=== PATIENT | female | born 1950 | race Caucasian/White ===

== ENCOUNTER 2018-08-09 07:57 | Day surgery (SDC) | payer OTHER, SELFPAY ==
[2018-08-01 13:47] VITALS: BMI 22.9
[2018-08-09] VITALS (15 sets, daily range): BP systolic 104–157; BP diastolic 67–89; PULSE 61–90; RESP 9–20; TEMP 36.2–36.6; O2SAT 96–100; BMI 22.6
--- NOTE | 2018-08-09 06:00 | DI.RAD.S_ITS ---
PROCEDURE: XR KNEE LT 1TO2V INDICATIONS: postop total knee TECHNIQUE: 2 view(s) of the knee acquired. COMPARISON: [facility], XR KNEE ARTHRITIC SERIES LT, 06/15/2018, 10:31. FINDINGS: Bones: Patient is status post knee joint arthroplasty. Hardware components are in expected positions. Visualized bony structures are intact. Soft tissues: Overlying postoperative changes are noted. There is a soft tissue air, edema, and fluid are present. No unexpected radiopaque foreign bodies are identified. IMPRESSION: Expected post surgical changes related to a total right knee arthroplasty. Dictated by: Timi Wilkes M.D. on 08/09/2018 at 12:11 Approved by: Timi Wilkes M.D. on 08/09/2018 at 12:11
[2018-08-09] MEDS: ACETAMINOPHEN 325 MG TABLET 975 MG PO ×3 (08:55→21:33)
[2018-08-09] MEDS: PREGABALIN 75 MG CAPSULE PO (08:56)
[2018-08-09] MEDS: LACTATED RINGERS 1,000 ML 42 ML IV ×2 (08:56→12:55)
[2018-08-09] MEDS: CELECOXIB 200 MG CAPSULE PO (08:56)
--- NOTE | 2018-08-09 09:42 | PM.PREOP ---
Pre-operative Note Interval Note History & Physical reviewed/Exam performed by Physician: Yes Changes to H&P: No
--- NOTE | 2018-08-09 09:53 | P.OP_ITS ---
Operative Date/Time/Diagnoses Date of procedure: 08/09/18 Time of procedure: 12:05 Pre-op diagnosis: Left knee osteoarthritis Post-op diagnosis: same Procedure & Clinicians Procedure: Left total knee replacement Same procedure as scheduled: Yes Indications: The patient has had progressively worsening left knee pain with radiographic changes consistent with arthritis. Non-operative management has failed and the patient has requested total knee replacement. The risks, benefits and alternatives to surgery were discussed with the patient prior to proceeding. Risks discussed included, but were not limited to, failure to relieve pain, stiffness, infection, nerve damage, deep venous thrombosis, pulmonary embolism, stroke, coma, heart attack, permanent paralysis and , as well as the potential need for eventual revision of the prosthetic. Surgeon: Urban Diaz Passenger Car Conductor: Natalie Campbell Click Yes if Unassisted: No Anesthesia Type: General, Spinal and Local Operative Notes Findings: Severe tricompartmental arthritis worst in the medial compartment. Closure Type: primary Specimen(s): none sent Implants & Drains: Implants used in this procedure were manufactured by the [employer] and [employer] and included the BCS II Journey total knee replacement with a size 5 left Oxinium femoral component, size 4 left non porous tibial base plate, a 10 mm cross-linked polyethylene tibial insert and a 35 mm oval Mary II patellar component. Applied: implant(s) Estimated Blood Loss (mL): 25 Blood products transfused: none Tourniquet time (min): 52 Procedure in detail: The patient was seen in the pre-operative area, where the left knee was identified as the operative site and this was marked with my initials. The patient received pre-operative antibiotics, and was taken to the operating room and placed on the operative table in the supine position. After satisfactory anesthesia, a milling machinist out? was performed. The left leg was encircled with a tourniquet about the proximal thigh, and the leg was prepared from the toes to the tourniquet with ChloroPrep in the usual fashion and draped through sterile drapes. The leg was elevated and exsanguinated with Eschmark bandage and the tourniquet inflated to 250 mmHg pressure. The knee was approached through an approximately 18 cm incision centered over the patella and carried into the knee through a medial parapatellar arthrotomy. The anterior osteophytes and soft tissues were removed. The rotational landmarks of [place]'s line and the transepicondylar axis were marked on the femur with electrocautery, and intramedullary guide holes for the femur and tibia were created. The distal femoral cut was made in 6 degrees of valgus using the intramedullary guide at the primary cut setting. The proximal tibial cut was then made using the intramedullary guide, taking 9 mm of bone off the less involved side. The extension gap was checked and the rotation of the femoral component confirmed with the gap balancing blocks. The anterior, posterior and chamfer cuts were then made. The posterior osteophytes and soft tissues were then removed. The posterior capsule was injected with part of a mixture of 60 ml 0.25% Marcaine mixed with 20 ml Exparel and 4 mg of morphine for post-operative pain control. The remainder of this mixture was injected into the capsule and subcutaneous tissues during cement curing. The tibia was prepared with the rotation set by an extra medullary guide. Trial tibial and femoral components were then placed and the intercondylar notch cut through the femoral trial. Range of motion was 0-140 degrees, with good stability throughout the range. The patella was then cut to accommodate the patellar prosthetic. There was no need for a lateral release. The trials were then removed, and the femoral hole plugged with a bone plug. The bone was prepared with pulsatile lavage, and dried with a sponge. Cement was applied and the final prosthetics placed. Excess cement was removed during and after cement curing. After confirming there was no extruded cement posteriorly, the final tibial insert was placed. The knee was copiously irrigated and the tourniquet deflated. Hemostasis was obtained. The capsule was closed with interrupted # 2 polyester sutures. The subcutaneous layer was closed with 3-0 Vicryl, and the skin with a running 3-0 V-Lock suture and SteriStrips. An Aquacel Ag dressing was applied and the patient was taken to recovery having tolerated the procedure well. Complications: none Condition: stable Disposition: PACU Plan for aftercare: The patient will be maintained on a standard total knee replacement protocol with weight bearing as tolerated. The patient will receive aspirin and sequential compression devices for DVT prophylaxis. The patient will be discharged home when safe for the home environment.
[2018-08-09] MEDS: CEFAZOLIN 2 GM/100 ML FROZ.PIGGY IV ×2 (10:35→19:52)
--- NOTE | 2018-08-09 11:04 | SUR.OPER ---
Supine on padded OR bed. Pillow under head, arms secured on padded armboards <90 degree abduction. Safety belt across torso. Non-operative leg secured with tape over blanket over lower leg. Operative leg secured in DeMayo/Maulik positioner. Foam padded brace at thigh of operative leg.
[2018-08-09] MEDS: BUPIVACAINE 0.25% W/ EPI VIAL 50 ML INJ (11:12)
[2018-08-09] MEDS: BUPIVACAINE LIPOSOME 266 MG/20 ML VIAL INJ (11:13)
[2018-08-09] MEDS: TRANEXAMIC ACID 1,000 MG VIAL 1000 MG INJ (11:13)
--- NOTE | 2018-08-09 12:35 | SUR.PHASEI ---
Pt excepted by jerrod hong, report given and I assumed care at this time.
[2018-08-09] MEDS: ONDANSETRON 4 MG/2 ML INJ IV (12:43)
--- NOTE | 2018-08-09 12:45 | SUR.PHASEI ---
Pt c/o nausea, ondansetron given along with queaze ease to bedside.
--- NOTE | 2018-08-09 13:01 | SUR.PHASEI ---
Nausea resolved, pt taking ice chips and applesauce.
[2018-08-09] MEDS: HYDROMORPHONE 2 MG INJ 0.25 MG IV (13:06)
[2018-08-09] MEDS: LACTATED RINGERS 1,000 ML 125 ML IV ×2 (13:59→23:13)
--- NOTE | 2018-08-09 14:16 | PC.NURSE ---
Day Shift Pt arrived from PACU via bed at 1330, A&O able to communicate needs. Laying on left side positioned with pillows for comfort. Left knee dressing has aqucel with seema wrap. Pt is able to wiggle toes and feels touch at bilateral knees. Lung sounds are clear 95% RA denies SOB. Mild nausea tolerating ice chips and sips of water. calf SCD's in place, IV fluids infusing per order. Oriented to room and call light. Family at bedside. Call light within reach and bed alarm for safety.
--- NOTE | 2018-08-09 15:10 | PT.IIE ---
Current Diagnoses Bilateral primary osteoarthritis of knee (08/09/18) Surgery Performed Operation Date: 08/09/18 10:15 Actual Procedures p Total Knee Arthroplasty(Left) - Urban Diaz MD Surgical History (Last Updated 08/01/18 @ 14:39 by Donna Ch RN) History of bilateral tubal ligation (Acute) History of section (Acute) History of colonoscopy (Acute) Medical History (Last Updated 08/01/18 @ 14:39 by Donna Ch RN) Anxiety (Acute) Bilateral knee pain (Acute) Depression (Acute) Easy bruisability (Acute) Hypoglycemia (Acute) Osteoporosis (Acute) Skin cancer (Acute) Syncope (Acute) Physical Therapy Inpatient Evaluation/Re-Eval M1 PT/OT-IP Prior Functional Status Start: 08/09/18 15:54 Freq: NEEDED Status: Active Protocol: Document 08/09/18 15:10 AB (Rec: 08/09/18 16:11 AB [id number]) Medical Review Prior Functional Status Medical History Reviewed Yes Communication able to make needs known Mobility and Gait stated that she is independent with all mobilities and ambulation without AD Social History Household Members spouse Living Arrangements House Number of Floors (Floors) Two Floors Number of Stairs To Enter/Railing? 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 sister present during PT session and stated that pt will stay with her at a hotel for the first ~ 2 days so that pt does not have to do stairs right away. M2 PT-IP Current Condition Start: 08/09/18 15:54 Freq: NEEDED Status: Active Protocol: Document 08/09/18 15:10 AB (Rec: 08/09/18 16:11 AB [id number]) Physical Therapy Current Condition Current Condition Evaluation Date 08/09/18 Treatment Diagnosis s/p L TKA; difficulty in walking Onset Date 08/09/18 Precautions Other Precautions BP Weight Bearing Status Weight Bearing Status Weight Bear as Tolerated M3 PT-IP Subjective Start: 08/09/18 15:54 Freq: NEEDED Status: Active Protocol: Document 08/09/18 15:10 AB (Rec: 08/09/18 16:11 AB [id number]) Subjective Physical Therapy Visit Type Type Initial Evaluation Visit Start Time 15:10 Visit Stop Time 15:47 Total Visit Minutes 37 Number of SPECIAL MAKEUP FX ARTIST INSTRUCTOR Visits 0 Physical Therapy Visit Comments Patient Comments pt agreeable to do PT Therapy Pain Assessment Pain When Pain Assessed At Rest Pain Present Pain Present Pain Reported Location Left Knee Intensity 2 Scale Used Numeric (1 - 10) Pain Management Techniques Apply Cold Re-positioning Timing of Activity with Medications M4 PT-IP Mobility and Gait Start: 08/09/18 15:54 Freq: NEEDED Status: Active Protocol: Document 08/09/18 15:10 AB (Rec: 08/09/18 16:11 AB [id number]) PT-Bed Mobility Assessment Supine to Sit Supine to Sit Standby Assistance Sit to Supine Sit to Supine Standby Assistance Scooting Scooting to Edge of Bed Standby Assistance Scooting Up and Down in Bed Standby Assistance PT-Transfer Assessment Comments Mobility Comments BP in supine: 122/64 O2 sat 97 % [place]: 84. pt completed supine to sit SBA. able to sit on EOB SBA. c/o slight dizziness /lightheadness. BP: 102/60. pt stated that she wants to try to stand but does not think she can do it due to dizziness. checked BP again after ~ 2min of restin/54 . instructed pt to lie back in bed and completed sit to supine SBA. pt able to scoot up into the bed with cues SBA. BP checked again in supine: 104/67. informed nursing regarding BP. positioned pt. in bed. call light and table placed within reach. Gait Assessment Comments Gait Comments unable at this time due to decrease in BP in sitting PT-Balance Assessment Sitting Balance and Reactions Static Sitting Balance Ability Good Dynamic Sitting Balance Ability Good M5 PT-IP Objective Assessments Start: 08/09/18 15:54 Freq: NEEDED Status: Active Protocol: Document 08/09/18 15:10 AB (Rec: 08/09/18 16:11 AB [id number]) Orientation Orientation/Cognition Level of Alertness Alert Orientation Name Age Birthday Month Year Place Situation Memory Description Retirement Impaired Gross Range of Motion Lower Extremity ROM Assessment Left Impaired Impairments L knee extension: lacking ~ 10 deg to neutral R knee flexion: up to ~ 70 degree Strength Lower Extremity Strength Assessment Left Impaired Hip 4/5 Knee 4-/5 Coordination Assessment Gross Coordination Gross Coordination WNL Muscle Tone Muscle Tone WNL Yes M6 PT-IP Treatment Start: 08/09/18 15:54 Freq: NEEDED Status: Active Protocol: Document 08/09/18 15:10 AB (Rec: 08/09/18 16:11 AB [id number]) Physical Therapy Treatment Exercises Exercises Heel Slides Education Education Provided Precautions Weight Bearing Status Post-Op Packet Safety M7 PT-IP Assessment and Plan Start: 08/09/18 15:54 Freq: NEEDED Status: Active Protocol: Document 08/09/18 15:10 AB (Rec: 08/09/18 16:11 AB [id number]) PT Summary Assessment and Plan Potential Rehabilitation Potential Fair Status of Condition at Evaluation Evolving Summary Impairments Pain ROM Strength Balance Coordination Sensation Tone Cognition Bed Mobility Transfers Gait Activity Tolerance Assessment Summary pt unable to tolerate much activity today due to decrease in BP to 89/54 in sitting with c/o lightheadedness. Needs further assessment to determine d/c plan. Goals Bed Mobility Goal Independent Transfer Goal Independent Gait Goal Standby Assistance Front Wheel Walker Gait Distance 150 Other Goals up/down 15 steps with R rail ascending SBA Days to Meet Goals 5 Frequency of Treatment Frequency Of Treatment Twice a Day Treatment Plan Physical Therapy Treatment Plan Bed Mobility Training Transfer Training Gait Training Therapeutic Exercise Balance Retraining Post Op Education Discharge Planning Hot or Cold Pack Neuromuscular Re-ed Coordination Retraining Manual Therapy Other Recommendations and Next Treatment ambulation, stair climbing Focus Recommendations To Nursing Amount of Assist Needed PT/OT Assist Only Discharge Recommendations PT Discharge Recommendations Home with 24/7 Assist SNF Rehab Outpatient PT Other Discharge Recommendations d/c plan needs further assessment
[2018-08-09] MEDS: OXYCODONE IR 5 MG TABLET PO ×2 (18:25→21:39)
[2018-08-09] MEDS: ASPIRIN EC 81 MG TABLET PO (19:53)
[2018-08-09] MEDS: DOCUSATE 100 MG CAPSULE PO (19:53)
[2018-08-09] MEDS: buPROPion XL 150 MG TAB PO (19:54)
[2018-08-09] MEDS: lamoTRIgine 100 MG TABLET 200 MG PO (19:54)
--- NOTE | 2018-08-10 00:01 | PC.NURSE ---
Vss, orthostatic hypotension with PT; bed farah for voiding; PO pain meds for moderate pain to left knee, pt reassessed at 5/10 pain; c/m/s to LLE present; PPP; Uriah bandage to left knee intact; ice applied to knee throughout shift; O2 RA=99%; pt calm and cooperative; IS 1500; pt using call light as needed; bed alarm active
[2018-08-10 00:45] VITALS: BP 144/75; PULSE 71; RESP 18; TEMP 36.4; O2SAT 96
[2018-08-10] MEDS: OXYCODONE IR 5 MG TABLET PO ×4 (00:53→12:29)
[2018-08-10] MEDS: CEFAZOLIN 2 GM/100 ML FROZ.PIGGY IV (03:02)
[2018-08-10 04:05] VITALS: BP 145/80; PULSE 86; RESP 18; TEMP 36.6; O2SAT 98
[2018-08-10 05:40] LABS: Hematocrit 36.1 % (36-46); Hemoglobin 11.9 g/dL (12.0-16.0)
--- NOTE | 2018-08-10 06:42 | PC.NURSE ---
Resting in bed @ this time. Medicated x2 with 5 mg. of Percolone, this shift. No C/O nausea & dizziness, slept most of the shift. Will cont. POC & monitor.
--- NOTE | 2018-08-10 06:53 | PM.DS.1 ---
History of Present Illness Date Patient Seen: 08/10/18 Time Patient Seen: 06:45 Chief complaint: 62494 LEFT TOTAL KNEE ARTHROCOPAY $300.00 *OPB* Narrative: The history and physical examination are contained in the chart in a previously completed note. Please refer to that note for this information. Discharge Providers Primary care physician: Adán Horne MD Consults: 08/09/18 13:39 Consult to Discharge Planning Routine Comment: Consult to Physical Therapy Evaluate & Treat Comment: Physician Instructions: postop TKA protocol Discharge provider: Urban Diaz MD Discharge Date: 08/10/18 Summary Discharge Diagnosis: 1. Left knee osteoarthritis 2. Acute post hemorrhagic anemia Hospital Course: The patient was admitted to the hospital and taken directly to the operating room on August 09, 2018 where she underwent a left total knee replacement without complications. Her initial physical therapy on the day of surgery was marked by mild orthostatic hypotension. She was observed overnight. At the time of this dictation the plan is for her to go home later today after additional physical therapy. Status at Discharge Cognitive/behavioral status at discharge: Baseline Functional status at discharge: uses cane/walker Overall status at discharge: patient is progressing back to baseline Time Spent with Patient Less than 30 minutes Exam Vital Signs (past 8 hours): - 08/10/18 00:45 08/10/18 04:05 Temperature 97.5 F L 97.8 F Pulse Rate 71 86 Respiratory Rate 18 18 Blood Pressure 144/75 H 145/80 H Pulse Oximetry 96 98 Oxygen Delivery Method Room Air Narrative Exam Narrative: Left knee wound is dressed with no drainage on the bandage. Calf is soft. Light touch and motion are intact in the left lower extremity. Objective Labs Result Diagrams: 08/10/18 05:23 Labs: Laboratory Results - last 24 hr 08/10/18 05:23 Hgb 11.9 L Hct 36.1 Discharge Plan Discharge Plan Patient Disposition: Home Discharge Med Rec/Prescriptions Prescriptions: New aspirin 81 mg Tablet,Delayed Release (Dr/Ec) 81 mg PO BID Qty: 85 RF: 0 oxycodone 5 mg Tablet 5 mg PO Q3HR PRN (Reason: Pain, Moderate (4-6)) Qty: 40 RF: 0 hydroxyzine pamoate 25 mg Capsule 25 mg PO Q6HR PRN (Reason: Nausea) Qty: 40 RF: 0 Continue lamotrigine 200 mg Tablet 200 mg PO BEDTIME RF: 0 clonazepam 0.5 mg Tablet 0.5 mg PO TID PRN (Reason: Anxiety) RF: 0 ibuprofen [Advil] 200 mg Tablet 3 - 4 tab PO DAILY PRN (Reason: pain) RF: 0 bupropion HCl 150 mg Tablet Extended Release 24 Hr 150 mg PO BEDTIME RF: 0 Follow up/Referrals: Urban Diaz MD [Physician] - 3-5 Days Discharge Orders: Discharge (Order); Ordered 08/10/18 Ordered By: Urban Diaz Provider Discharge Instructions Diet: Diet as Tolerated and Regular Activity: You may bear weight on your left leg as tolerated. Cold/Heat Therapy: Apply ice to the left knee for 15 min of every hour as needed. Skin/Wound/Dressing Care Report to your healthcare provider any signs of infection, such as:: chills, fever, night sweats, increased pain, unusual drainage and unusual redness Dressing: Leave the Uriah wrap intact until 3 days after surgery. You may then remove the Uriah wrap and shower normally with the deeper dressing in place. If the central strip of the deep dressing becomes saturated with either water or blood, call the office to have it changed. Visit Report/Discharge Packet Stand Alone Forms: Surgery Discharge Discharge Data Primary Care Provider: Adán Horne Attending Provider: Urban Diaz Quality VTE Deep Vein Thrombosis/Pulmonary Embolism Present on Admission: No
--- NOTE | 2018-08-10 07:32 | PM.PNPO.1 ---
Subjective Date Patient Seen: 08/10/18 Time Patient Seen: 07:32 Interval history: Patient's pain is mild. Denies fever chills. No nausea vomiting. Patient did get hypotensive last night when trying to get up to use the restroom. Patient did not participate in physical therapy and has been using a bedpan. Exam Vital Signs (past 8 hours): - 08/10/18 00:45 08/10/18 04:05 Temperature 97.5 F L 97.8 F Pulse Rate 71 86 Respiratory Rate 18 18 Blood Pressure 144/75 H 145/80 H Pulse Oximetry 96 98 Oxygen Delivery Method Room Air Narrative Exam Narrative: Pleasant 67-year-old female resting comfortably in bed in no apparent distress. Left knee dressing is clean, dry and intact. Sensation is grossly intact to light touch distal left lower extremity. Motor function is intact. Left leg is warm and dry. Objective Labs Result Diagrams: 08/10/18 05:23 Labs: Laboratory Results - last 24 hr 08/10/18 05:23 Hgb 11.9 L Hct 36.1 Assessment & Plan Post-op Postoperative Procedures Operation Date: 08/09/18 10:15 Actual Procedures Side Surgeon p Total Knee Arthroplasty Left Urban Diaz MD postop day 1. Status post left total knee arthroplasty. Mobilize with physical therapy. Reviewed the blood pressure history and appears to be a stable no significant hypotension. Likely discharge home later today or tomorrow. Quality VTE Deep Vein Thrombosis/Pulmonary Embolism Present on Admission: No
[2018-08-10 07:40] VITALS: BP 155/77; PULSE 75; RESP 16; TEMP 36.4; O2SAT 100
[2018-08-10] MEDS: LACTATED RINGERS 1,000 ML 125 ML IV (07:59)
[2018-08-10] MEDS: HYDROMORPHONE 0.5 MG INJ IV (08:06)
[2018-08-10] MEDS: ACETAMINOPHEN 325 MG TABLET 975 MG PO ×2 (09:00→14:28)
[2018-08-10] MEDS: ASPIRIN EC 81 MG TABLET PO (09:00)
[2018-08-10] MEDS: DOCUSATE 100 MG CAPSULE PO (09:01)
--- NOTE | 2018-08-10 10:32 | PT.IPTN ---
Current Diagnoses Bilateral primary osteoarthritis of knee (08/09/18) Surgery Performed Operation Date: 08/09/18 10:15 Actual Procedures p Total Knee Arthroplasty(Left) - Urban Diaz MD Physical Therapy Treatment Note M2 PT-IP Current Condition Start: 08/09/18 15:54 Freq: NEEDED Status: Active Protocol: Document 08/09/18 15:10 AB (Rec: 08/09/18 16:11 AB [id number]) Physical Therapy Current Condition Current Condition Evaluation Date 08/09/18 Treatment Diagnosis s/p L TKA; difficulty in walking Onset Date 08/09/18 Precautions Other Precautions BP Weight Bearing Status Weight Bearing Status Weight Bear as Tolerated M3 PT-IP Subjective Start: 08/09/18 15:54 Freq: NEEDED Status: Active Protocol: Document 08/10/18 10:19 SA (Rec: 08/10/18 10:32 SA [email or web address]) Subjective Physical Therapy Visit Type Type Treatment Note Visit Start Time 09:35 Visit Stop Time 10:15 Total Visit Minutes 40 Number of TIP BANDER Visits 1 Physical Therapy Visit Comments Patient Comments Pt in bed agreeable to PT session this AM. BP 131/62 while in bed with HOB elevated at 70 degrees. Therapy Pain Assessment Pain When Pain Assessed During Mobility Pain Present Pain Present Pain Reported Location Left Knee Intensity 5 Scale Used Numeric (1 - 10) Description Acute Pain Management Techniques Apply Cold Re-positioning Timing of Activity with Medications M4 PT-IP Mobility and Gait Start: 08/09/18 15:54 Freq: NEEDED Status: Active Protocol: Document 08/10/18 10:19 SA (Rec: 08/10/18 10:32 SA [email or web address]) PT-Bed Mobility Assessment Rolling Type of Rolling Roll to Left Supine to Sit Supine to Sit Standby Assistance Sit to Supine Sit to Supine Standby Assistance Scooting Scooting to Edge of Bed Standby Assistance Scooting Up and Down in Bed Standby Assistance PT-Transfer Assessment Sit to and From Stand Sit to and from Stand Contact Guard Assistance Equipment Transfer Assistive Device Gait Belt Front Wheeled Walker Orthotic/Prosthetic Devices or Brace: No Transfers Transfer Destination Chair Toilet Transfer Technique Stand Step Pivot Transfer Ability Level of Assist Contact Guard Assistance Comments Mobility Comments Pt on IV fluids and stabalized BPs this AM. BP seated at EOB 117/75 and BP in standing 119 /77. Pt had no c/o dizziness with mobility. Stand pivot txs on/off toilet using FWW and grab bar with CGA and min cues . Gait Assessment Gait Gait Assistance Required: Contact Guard Assist Distance (Feet) 75 Able to Maintain Weight Bearing Status Yes During Gait Assistive Devices Assistive Device Front Wheeled Walker Orthotic/Prosthetic Devices or Brace: No Gait Deviations General Gait Pattern Decreased Stride Length Decreased Feet Clearance Step-to Gait Factors Limiting Gait Function Factors Limiting Gait Function Decreased Activity Tolerance Decreased Strength Limited Range of Motion Pain Comments Gait Comments Initial walk from far side of bed to bathroom with CGA and about 12 feet, 2nd walk in oneill about 60 feet with pt able to increase RLE step length and normalize gait pattern with cues. WBs heavily through UEs, pt rates knee pain as 5/10 with WBing and 2/ 10 at rest. Stair Climbing Assessment Comments Stair Climbing Comments Plan to attempt stairs this afternoon. PT-Balance Assessment Sitting Balance and Reactions Static Sitting Balance Ability Good Dynamic Sitting Balance Ability Good Comments Other Balance Tests/Deviations/Treatment Standing static balance : training with FWW and pt weight shifting to L side to promote WBing through LLE and help normalize gait. M5 PT-IP Objective Assessments Start: 08/09/18 15:54 Freq: NEEDED Status: Active Protocol: Document 08/09/18 15:10 AB (Rec: 08/09/18 16:11 AB [id number]) Orientation Orientation/Cognition Level of Alertness Alert Orientation Name Age Birthday Month Year Place Situation Memory Description [facility] Impaired Gross Range of Motion Lower Extremity ROM Assessment Left Impaired Impairments L knee extension: lacking ~ 10 deg to neutral R knee flexion: up to ~ 70 degree Strength Lower Extremity Strength Assessment Left Impaired Hip 4/5 Knee 4-/5 Coordination Assessment Gross Coordination Gross Coordination WNL Muscle Tone Muscle Tone WNL Yes M6 PT-IP Treatment Start: 08/09/18 15:54 Freq: NEEDED Status: Active Protocol: Document 08/10/18 10:19 SA (Rec: 08/10/18 10:32 SA [email or web address]) Physical Therapy Treatment Exercises Exercises Ankle Pumps Quad Sets Heel Slides Seated Knee Flexion/Extension Education Education Provided Precautions Weight Bearing Status Post-Op Packet Safety M7 PT-IP Assessment and Plan Start: 08/09/18 15:54 Freq: NEEDED Status: Active Protocol: Document 08/10/18 10:19 SA (Rec: 08/10/18 10:32 [email or web address]) PT Summary Assessment and Plan Potential Rehabilitation Potential Good Status of Condition at Evaluation Stable Summary Assessment Summary Pt with improved BPs and mobility today, changed status from bed rest/bedpan to patient walking to/from bathroom with FWW and staff. No symptoms with ambulation and good tolerance of exercises. Frequency of Treatment Frequency Of Treatment Twice a Day Recommendations To Nursing Amount of Assist Needed 1 Person Assist Discharge Recommendations PT Discharge Recommendations Home with Assistance Home with 08/02 Assist Outpatient PT Equipment Needed for Home Before Pt has FWW, elevated toilet Discharge seat.
[2018-08-10 11:10] VITALS: BP 132/69; PULSE 77; RESP 18; TEMP 36.5; O2SAT 99
--- NOTE | 2018-08-10 11:29 | PC.NURSE ---
Addendum entered by Tesha Olson R.N. 08/10/18 14:48: MS/PAIN/DC - reviewed dc instructions, scripts were filled according to [facility] protocol, given 975mg po tylenol prior to discharge, per phys therapy, ambul and did well with stair practice and cleared for discharge, hep lock dc'd, pt dressed and belongings gathered, including own cane and cell phone, forms examiner, glasses, , tsf to and escorted to sister's car. Original Note: AM NOTE - alert, uncomfortable, pain 8 on scale 0/10, becoming anxious and tearful, able move lle, seema wrap over aquacell cdi, + sensation, ra 97%, discussed pain mgt and given 0.5mg dilaudid and then after breakfast 5mg po oxycodone, pt much calmer and smiling and states the pain improved after the dilaudid to 5 on scale 0/10, able stand and mobilize with phys therapy, ambul w/fww, gait steady, ret to chair after into br w/void, bp did drop to 119/77 when up, denied dizziness, plan to mobilize with stair practice after lunch and antic dc home later afternoon.
--- NOTE | 2018-08-10 15:13 | PT.IPTN ---
Current Diagnoses Bilateral primary osteoarthritis of knee (08/09/18) Surgery Performed Operation Date: 08/09/18 10:15 Actual Procedures p Total Knee Arthroplasty(Left) - Urban Diaz MD Physical Therapy Treatment Note M2 PT-IP Current Condition Start: 08/09/18 15:54 Freq: NEEDED Status: Discharge Protocol: Document 08/09/18 15:10 AB (Rec: 08/09/18 16:11 AB [id number]) Physical Therapy Current Condition Current Condition Evaluation Date 08/09/18 Treatment Diagnosis s/p L TKA; difficulty in walking Onset Date 08/09/18 Precautions Other Precautions BP Weight Bearing Status Weight Bearing Status Weight Bear as Tolerated M3 PT-IP Subjective Start: 08/09/18 15:54 Freq: NEEDED Status: Discharge Protocol: Document 08/10/18 15:03 SA (Rec: 08/10/18 15:13 SA [email or web address]) Subjective Physical Therapy Visit Type Type Treatment Note Visit Start Time 13:49 Visit Stop Time 14:17 Total Visit Minutes 28 Number of YARDING AND FOLDING MACHINE OPERATOR Visits 2 Physical Therapy Visit Comments Patient Comments Pt up and sister is present for treatment, agreeable to try stairs. Therapy Pain Assessment Pain When Pain Assessed During Mobility Pain Present Pain Present Pain Reported Location Left Knee Intensity 5 Scale Used Numeric (1 - 10) Pain Management Techniques Apply Cold Re-positioning Timing of Activity with Medications M4 PT-IP Mobility and Gait Start: 08/09/18 15:54 Freq: NEEDED Status: Discharge Protocol: Document 08/10/18 15:03 SA (Rec: 08/10/18 15:13 SA [email or web address]) PT-Bed Mobility Assessment Rolling Type of Rolling Roll to Right Level of Assist Standby Assistance Supine to Sit Supine to Sit Standby Assistance Sit to Supine Sit to Supine Standby Assistance Scooting Scooting to Edge of Bed Standby Assistance Scooting Up and Down in Bed Standby Assistance PT-Transfer Assessment Sit to and From Stand Sit to and from Stand Contact Guard Assistance Equipment Transfer Assistive Device Gait Belt Front Wheeled Walker Orthotic/Prosthetic Devices or Brace: No Transfers Transfer Destination Chair Toilet Transfer Technique Stand Step Pivot Transfer Ability Level of Assist Contact Guard Assistance Comments Mobility Comments Pt with SBA-CGA for mobility tasks, min cues for safety and sister present and will be primary caregiver upon d/c. No c/o dizziness with teatment and pain levels remaining at 5 with movement. Gait Assessment Gait Gait Assistance Required: Contact Guard Assist Distance (Feet) 150 Able to Maintain Weight Bearing Status Yes During Gait Assistive Devices Assistive Device Front Wheeled Walker Orthotic/Prosthetic Devices or Brace: No Factors Limiting Gait Function Factors Limiting Gait Function Decreased Activity Tolerance Decreased Strength Limited Range of Motion Pain Comments Gait Comments Pt with step to gait pattern but able to correct with cues and able to increase LLE Wbing to normalize gait pattern. Stair Climbing Assessment Evaluation Level of Assist On Stairs Contact Guard Assistance Devices Stair Climbing Assistive Devices Left Railing Right Railing Technique/Endurance Stair Climbing Direction Ascend and Descend Stair Climbing Technique Step to Step Number of Steps Climbed 3 Query Text: Stair Climbing Set # Repetitions (reps) 2 Comments Stair Climbing Comments Pt did well on stairs using B rails with SBA-CGA with Mod cues for technique and step to pattern. PT-Balance Assessment Sitting Balance and Reactions Static Sitting Balance Ability Good Dynamic Sitting Balance Ability Good M5 PT-IP Objective Assessments Start: 08/09/18 15:54 Freq: NEEDED Status: Discharge Protocol: Document 08/09/18 15:10 AB (Rec: 08/09/18 16:11 AB [id number]) Orientation Orientation/Cognition Level of Alertness Alert Orientation Name Age Birthday Month Year Place Situation Memory Description [place] Impaired Gross Range of Motion Lower Extremity ROM Assessment Left Impaired Impairments L knee extension: lacking ~ 10 deg to neutral R knee flexion: up to ~ 70 degree Strength Lower Extremity Strength Assessment Left Impaired Hip 4/5 Knee 4-/5 Coordination Assessment Gross Coordination Gross Coordination WNL Muscle Tone Muscle Tone WNL Yes M6 PT-IP Treatment Start: 08/09/18 15:54 Freq: NEEDED Status: Discharge Protocol: Document 08/10/18 15:03 SA (Rec: 08/10/18 15:13 SA [email or web address]) Physical Therapy Treatment Exercises Exercises Ankle Pumps Quad Sets Heel Slides Seated Knee Flexion/Extension Education Education Provided Precautions Weight Bearing Status Post-Op Packet Safety M7 PT-IP Assessment and Plan Start: 08/09/18 15:54 Freq: NEEDED Status: Discharge Protocol: Document 08/10/18 15:03 SA (Rec: 08/10/18 15:13 SA [email or web address]) PT Summary Assessment and Plan Potential Rehabilitation Potential Good Status of Condition at Evaluation Stable Summary Assessment Summary Pt ready for d/c with sister who is caregiver and also an RN. Improved ambulation and ability to manage stairs safely. Frequency of Treatment Frequency Of Treatment Twice a Day Recommendations To Nursing Amount of Assist Needed 1 Person Assist Discharge Recommendations PT Discharge Recommendations Home with Assistance Equipment Needed for Home Before Pt has FWW, elevated toilet Discharge seat.
== END 2018-08-10 15:00 | disposition home or self-care (01) ==
LOC: OR 08:19 → AC 13:38
PROVIDERS: PCP Family Medicine; Visit Provider Orthopaedic Surgery
PROC: 0SRD0JZ Replacement of Left Knee Joint with Synthetic Substitute, Open Approach (ICD-10-PCS; CPT 27447; principal; 2018-08-09 10:15)
DX: M17.12 Unilateral primary osteoarthritis, left knee (principal); F41.9 Anxiety disorder, unspecified; D62 Acute posthemorrhagic anemia
CPT/HCPCS: 27447; 36415; 73560; 85014; 85018; 97110; 97116; 97162; 97530; C1776; C9290; J0690; J1100; J1170; J2250; J2405; J2704; J3010